=== PATIENT | male | born 2000 | race Caucasian/White ===

== ENCOUNTER 2025-02-09 15:47 | Emergency (ER) | payer BC ==
[~2025-02-09] VITALS: Ht 203.2 cm; Wt 115.7 kg
[2025-02-09] MEDS ORDERED: OXCARBAZEPINE 150 MG TABLET ONE (16:03)
[2025-02-09] MEDS ORDERED: OXCA300T15 PO (16:07)
[2025-02-09] MEDS ORDERED: ZONI100C31 PO (16:07)
[2025-02-09] MEDS: ZONISAMIDE 100 MG CAPSULE PO ONE (16:14)
[2025-02-09] MEDS: OXCARBAZEPINE 150 MG TABLET PO ONE (16:14)
[2025-02-09 16:44] VITALS: BP 141/78; TEMP 98; O2SAT 99
[2025-02-10] MEDS ORDERED: ZONI100C31 PO (11:47)
[2025-02-10] MEDS ORDERED: OXCA300T15 PO (11:47)
== END 2025-02-09 16:45 | disposition home or self-care (01) ==
LOC: ER 15:50
DX: R56.9 Unspecified convulsions (principal); Z88.8 Allergy status to other drugs, medicaments and biological substances; Z79.899 Other long term (current) drug therapy